=== PATIENT | female | born 1930 | race Caucasian/White ===

== ENCOUNTER 2018-01-27 12:43 | Inpatient (IN) | payer OTHER ==
[~2018-01-27] VITALS: Ht 162.6 cm; Wt 56.2 kg
[2018-01-27 12:43] VITALS: BP_SYST 144
--- NOTE | 2018-01-27 12:43 | NUR ---
[facility] from [facility]. Patient to ER bed 06 to gown for evaluation. Side rails up.
--- NOTE | 2018-01-27 12:57 | NUR ---
ER Dr. Jeronimo at bedside examining patient.
[2018-01-27] MEDS ORDERED: ONDANSETRON 4 MG ODT TAB PO ONE (13:15)
[2018-01-27] MEDS ORDERED: MORPHINE 2 MG/ML INJ. SYRINGE IM ONE (13:15)
--- NOTE | 2018-01-27 13:49 | NUR ---
medications were given, pt tolerated well. No adverse reaction, will continue to monitor.
--- NOTE | 2018-01-27 14:30 | NUR ---
Patient resting quietly. No acute distress noted. Vital signs within normal range.
[2018-01-27] MEDS ORDERED: MORPHINE 2 MG/ML INJ. SYRINGE IVP PRN (14:45)
[2018-01-27] MEDS ORDERED: POTASSIUM CHLORIDE 20 MEQ TAB.PRT.SR PO PRN (14:45)
[2018-01-27] MEDS ORDERED: ONDANSETRON HCL 4 MG/2 ML VIAL IVP PRN (14:45)
[2018-01-27] MEDS ORDERED: DOCUSATE SODIUM 100 MG CAPSULE PO PRN (14:45)
[2018-01-27] MEDS ORDERED: ACETAMINOPHEN 325 MG TABLET PO PRN ×2 (14:45)
[2018-01-27] MEDS ORDERED: MAGNESIUM SULFATE 50 ML IV PRN (14:45)
--- NOTE | 2018-01-27 14:50 | NUR ---
Pt off unit for CT via [facility]
[2018-01-27 15:12] LABS: BASOPHILS % (AUTO) 0.5 % (0.0-2.0); EOSINOPHILS # (AUTO) 0.1 K/uL (0.0-0.4); EOSINOPHILS % (AUTO) 1.8 % (0.0-4.0); HEMATOCRIT 33.3 % (36-48); HEMOGLOBIN 11.1 g/dL (12.0-16.0); LYMPHOCYTES % (AUTO) 19.7 % (20.5-51.5); MEAN CORPUSCULAR HEMOGLOBIN 32 pg (27-31); MEAN CORPUSCULAR HGB CONC 33 % (32-36); MEAN CORPUSCULAR VOLUME 96 fL (79.0-98.0); MONOCYTES # (AUTO) 0.3 K/uL (0.0-1.0); MONOCYTES % (AUTO) 5.3 % (1.7-9.3); NEUTROPHILS # (AUTO) 3.5 K/uL (1.8-7.7); NEUTROPHILS % (AUTO) 72.7 % (40.0-70.0); PLATELET COUNT (AUTO) 278 K/uL (130-430); RED BLOOD CELL COUNT(AUTO) 3.48 MIL/uL (4.2-6.2); RED CELL DISTRIBUTION WIDTH 12.9 % (9.0-15.0); WHITE BLOOD COUNT (AUTO) 4.9 K/uL (4.8-10.8)
[2018-01-27 15:14] LABS: ANION GAP 6 (5-15); CALCIUM 8.7 mg/dL (8.4-11.0); CHLORIDE 104 mmol/L (98-107); CREATININE 0.92 mg/dL (0.55-1.30); GLUCOSE 106 mg/dL (70-99); POTASSIUM 3.7 mmol/L (3.5-5.1); SODIUM SERUM 137 mmol/L (136-145); UREA NITROGEN, BLOOD 7 mg/dL (8-21)
[2018-01-27 15:30] LABS: ALANINE AMINOTRANSFERASE 8 U/L (12-78); ALBUMIN 3.5 g/dL (3.4-4.8); AMYLASE 48 U/L (0-100); ASPARTATE AMINOTRANSFERASE 13 U/L (10-37); FREE T4 (FREE THYROXINE) 1.3 ng/dl (0.8-1.5); LIPASE 169 U/L (73-393); THYROID STIMULATING HORMONE 1.16 uIu/mL (0.36-3.74); TOTAL BILIRUBIN 0.3 mg/dL (0.0-1.0)
[2018-01-27 16:00] VITALS: BP_SYST 149
--- NOTE | 2018-01-27 16:22 | NUR ---
Patient will be admitted to care of Dr. Garcia. Admitted to med surg unit. Will go to room 120b. Belongings list completed. Summary report printed. Report will be given at bedside.
--- NOTE | 2018-01-27 16:23 | NUR ---
Transfer to same day surgery center. IV present no sign or symptom of infiltration.
--- NOTE | 2018-01-27 16:28 | NUR ---
ADMISSION NOTE Received patient from ER via [facility]an, received report from Luis Alberto LORENZO. Patient admitted with diagnosis of Lumbago. Patient oriented to hospital routine, call light, toileting and safety-patient verbalized understanding.
[2018-01-27 16:34] VITALS: BP_SYST 149
[2018-01-27 17:50] VITALS: BP_SYST 149
[2018-01-27] MEDS: HYDROcodone/ACETAMIN 10-325 MG TAB PO PRN ×2 (17:55→17:56)
--- NOTE | 2018-01-27 18:50 | NUR ---
Rounds Patient is currently resting comfortably in bed.IV is on the lac 26 running NS@60. Call light is within reach and bed is in low position. Will endorse care to the oncoming nurse.
[2018-01-27] MEDS: NACL 0.9% 1,000 ML IV SCH (18:57)
[2018-01-27 19:30] VITALS: BP_SYST 128
--- NOTE | 2018-01-27 19:30 | NUR ---
Initial PM Note Pt was received lying in bed fully awake, alert and oriented x4. Pt is [place] Speaking and able to make her needs known. No c/o pain or discomfort. IVF of NS is infusing well in LAC at 60ml/hr without any signs of infiltration. Fall and safety precautions are in place. Pt was instructed to call for assistance as needed and pt verbalized understanding. Call light is with pt and bed alarm is on. Will continue to monitor pt.
[2018-01-27] MEDS ORDERED: ZOLPIDEM TARTRATE 5 MG TABLET PO PRN (21:00)
--- NOTE | 2018-01-27 22:00 | NUR ---
Rounds Pt is sleeping without any distress noted. Call light is with pt and bed alarm is on. IVF is infusing well in [facility].
[2018-01-27] MEDS: DOCUSATE SODIUM 100 MG CAPSULE PO SCH (22:13)
[2018-01-27] MEDS: CALCIUM CARBONATE/VITAMIN D3 1 TAB TABLET PO SCH (22:13)
--- NOTE | 2018-01-28 | NUR ---
Rounds Pt is sleeping comfortably in bed. Fall and safety precautions are in place. Call light is with pt and bed a;arm is on.
[2018-01-28 00:20] VITALS: BP_SYST 132
--- NOTE | 2018-01-28 02:00 | NUR ---
Rounds Pt continues to sleep comfortably in bed. IVF is infusing well in [facility]. Fall and safety precautions are in place. Call light is with pt and bed alarm is on.
--- NOTE | 2018-01-28 04:00 | NUR ---
Rounds Pt is sleeping without any respiratory distress noted. Call light is with pt and bed alarm is on. IVF is infusing well in [facility]. Will continue to monitor pt.
[2018-01-28] MEDS: HYDROcodone/ACETAMIN 10-325 MG TAB PO PRN ×3 (06:19→18:42)
--- NOTE | 2018-01-28 06:19 | NUR ---
Pain Medication [place] 10/325mg 1 tablet was given po for c/o low back pain with relief.
[2018-01-28 06:36] LABS: BASOPHILS % (AUTO) 0.5 % (0.0-2.0); EOSINOPHILS # (AUTO) 0.1 K/uL (0.0-0.4); EOSINOPHILS % (AUTO) 2.9 % (0.0-4.0); HEMATOCRIT 32.8 % (36-48); HEMOGLOBIN 11.2 g/dL (12.0-16.0); LYMPHOCYTES # (AUTO) 1.2 K/uL (1.0-5.5); LYMPHOCYTES % (AUTO) 25.7 % (20.5-51.5); MEAN CORPUSCULAR HEMOGLOBIN 33 pg (27-31); MEAN CORPUSCULAR HGB CONC 34 % (32-36); MEAN CORPUSCULAR VOLUME 96 fL (79.0-98.0); MONOCYTES # (AUTO) 0.2 K/uL (0.0-1.0); MONOCYTES % (AUTO) 5.1 % (1.7-9.3); NEUTROPHILS # (AUTO) 3.3 K/uL (1.8-7.7); NEUTROPHILS % (AUTO) 65.8 % (40.0-70.0); PLATELET COUNT (AUTO) 271 K/uL (130-430); RED BLOOD CELL COUNT(AUTO) 3.42 MIL/uL (4.2-6.2); RED CELL DISTRIBUTION WIDTH 12.8 % (9.0-15.0); WHITE BLOOD COUNT (AUTO) 4.9 K/uL (4.8-10.8)
[2018-01-28 06:45] LABS: ANION GAP 6 (5-15); CALCIUM 9.6 mg/dL (8.4-11.0); CHLORIDE 104 mmol/L (98-107); CHOLESTEROL 166 mg/dL (<200); CREATININE 0.83 mg/dL (0.55-1.30); GLUCOSE 93 mg/dL (70-99); HDL CHOLESTEROL 49 mg/dL (>55); LDL CHOLESTEROL 94 mg/dL (<100); PHOSPHORUS 3.5 mg/dL (2.7-4.5); POTASSIUM 3.6 mmol/L (3.5-5.1); SODIUM SERUM 139 mmol/L (136-145); TRIGLYCERIDES 107 mg/dL (30-150); UREA NITROGEN, BLOOD 9 mg/dL (8-21)
--- NOTE | 2018-01-28 06:50 | NUR ---
Closing Note Pt is resting comfortably in bed. IVF is infusing well in [facility]. Call light is with pt and bed alarm is on. Will endorse to day shift nurse.
[2018-01-28 07:08] LABS: HEMOGLOBIN A1C 4.9 % (4.8-5.6)
[2018-01-28 08:00] VITALS: BP_SYST 146
--- NOTE | 2018-01-28 08:00 | NUR ---
Opening Note received report from caustic cresylate shift superintendent RN, pt resting in bed, A&Ox4, respirations even and unlabored on room air, pt denies any pain at this time, IV site clean, dry, intact, and infusing well, pt educated on use of call light and asked to call for assistance, pt verbalized understanding, call light in reach, bed in low position, bed alarm on, fall and aspiration precautions in place.
[2018-01-28 08:11] LABS: T4 (THYROXINE) 8.6 ug/dL (4.5-12.0)
[2018-01-28] MEDS: NACL 0.9% 1,000 ML IV SCH (08:46)
[2018-01-28] MEDS: CALCIUM CARBONATE/VITAMIN D3 1 TAB TABLET PO SCH ×2 (08:46→20:52)
[2018-01-28] MEDS: DOCUSATE SODIUM 100 MG CAPSULE PO SCH ×2 (08:46→20:52)
--- NOTE | 2018-01-28 08:50 | NUR ---
Medication pt edcuated on medication use and side effects, pt verbalized understanding, tolerated medication administration well, fall and aspiration precautions in place.
--- NOTE | 2018-01-28 09:16 | NUR ---
Nutrition Update Nestor Scale 15 noted. Pt admitted for lumbago. Diet: regular BMI: 21.3 kg/m2 RD to follow per nutrition care standards.
--- NOTE | 2018-01-28 10:40 | NUR ---
RN Rounds pt resting in bed, denies any pain at this time, IV infusing well, no additional needs at this time, fall and aspiration precautions in place.
[2018-01-28 11:09] VITALS: BP_SYST 134
--- NOTE | 2018-01-28 12:39 | NUR ---
Pain Management/Medication pt complaint of pain /10 to abdomen and lower back, pt educated on use of PRN pain medication, pt verbalized understanding, pt tolerated medication administration well, no additional needs at this time, fall and aspiration precautions in place.
--- NOTE | 2018-01-28 14:07 | NUR ---
RN Rounds pt sleeping in bed, easily arousable to name, respirations even and unlabored, pain controlled at this time, fall and aspiration precautions in place.
--- NOTE | 2018-01-28 15:10 | NUR ---
RN Rounds pt crying, states that her blanket is wet, pt brought new linens, pt offered toileting, pt states that she does not need toileting at this time, pt states that pain is controlled, all needs met, pt resting in bed, call light in reach, fall and aspiration precautions in place.
[2018-01-28 15:14] VITALS: BP_SYST 125
--- NOTE | 2018-01-28 15:51 | NUR ---
IV RE-INSERTION: Complaining of leaking to IV site. Restarted on right wrist g22. Successful after 1 attempts. Resumed current IVF and regulated @ 69 ml per hour. Will observe for any signs of infiltration.
--- NOTE | 2018-01-28 16:50 | NUR ---
RN Rounds pt resting in bed, caregiver from [place] at bedside, pt reports that pain is controlled at this time, respirations even and unlabored on room air, no acute distress noted, no additional needs at this time, fall and aspiration precautions in place.
--- NOTE | 2018-01-28 18:01 | NUR ---
Pain Management pt complaint of pain 5/10, pt requesting PRN norco, pt informed that PRN norco is not due at this time, pt offered PRN morphine for pain scale 5/10, pt refusing PRN morphine, pt states that she will wait until PRN norco is due, pt assisted to reposition to position of comfort, pt states that she is comfortable at this time, fall and aspiration precautions in place.
--- NOTE | 2018-01-28 18:44 | NUR ---
Pain Management/Medication pt complaint of pain 11/27 to middle back, pt educated on use and side effects of PRN pain medication, pt verbalized understanding, pt tolerated medication administration well, no additional needs at this time, fall and aspiration precautions in place.
--- NOTE | 2018-01-28 18:58 | NUR ---
Closing Note pt resting in bed, A&Ox4, respirations even and unlabored on room air, pain reassessment at 1942 endorsed to overnight stocker RN, no acute distress noted, IV site clean, dry, intact, and infusing well, no redness or swelling noted at IV site, pt educated on use of call light and asked to call for assistance, pt verbalized understanding, call light in reach, bed in low position, bed alarm on, fall and aspiration precautions in place, will endorse care to overnight stocker RN.
--- NOTE | 2018-01-28 19:15 | NUR ---
OPENING NOTE Patient and bedside received from day shift nurse. Pt. AAO x 4 and resting in bed. IVF infusing to right wrist 22g as ordered. Bilateral SCDS on. Safety and fall precautions in place. Bed alarm on. Encouraged patient to use call light for any needs. Will continue to monitor.
[2018-01-28 19:40] VITALS: BP_SYST 127
--- NOTE | 2018-01-28 20:00 | NUR ---
WARM BLANKET Warm blanket applied to patient as requested.
--- NOTE | 2018-01-28 21:00 | NUR ---
DUE MEDS Due meds administered as ordered. Tolerated well. Educated patient regarding medications and potential side effects. Encouraged pt. to continue using call light for needs. Bed alarm on. Will continue to monitor.
--- NOTE | 2018-01-29 | NUR ---
BRP TO VOID Patient was assisted by Scott Arzate RN to bathroom to void; tolerated well with no SOB.
[2018-01-29 00:20] VITALS: BP_SYST 138
--- NOTE | 2018-01-29 02:30 | NUR ---
IVF IVF bag was changed and replaced. Infusing at ordered rate. Will monitor.
[2018-01-29] MEDS: NACL 0.9% 1,000 ML IV SCH (02:44)
--- NOTE | 2018-01-29 04:00 | NUR ---
RESTING Patient is resting at this time. No s/s of acute distress. Safety and fall precautions in place. Bed alarm on. Will continue to monitor.
[2018-01-29 05:46] LABS: BASOPHILS % (AUTO) 0.4 % (0.0-2.0); EOSINOPHILS # (AUTO) 0.2 K/uL (0.0-0.4); EOSINOPHILS % (AUTO) 3.8 % (0.0-4.0); HEMATOCRIT 32.6 % (36-48); HEMOGLOBIN 10.6 g/dL (12.0-16.0); MEAN CORPUSCULAR HEMOGLOBIN 31 pg (27-31); MEAN CORPUSCULAR HGB CONC 33 % (32-36); MEAN CORPUSCULAR VOLUME 96 fL (79.0-98.0); MONOCYTES # (AUTO) 0.3 K/uL (0.0-1.0); MONOCYTES % (AUTO) 7.5 % (1.7-9.3); NEUTROPHILS # (AUTO) 2.5 K/uL (1.8-7.7); NEUTROPHILS % (AUTO) 63.3 % (40.0-70.0); PLATELET COUNT (AUTO) 265 K/uL (130-430); RED BLOOD CELL COUNT(AUTO) 3.39 MIL/uL (4.2-6.2); RED CELL DISTRIBUTION WIDTH 12.6 % (9.0-15.0)
--- NOTE | 2018-01-29 06:03 | NUR ---
RESTING Patient is resting; no s/s of acute distress. Visible chest rise and fall. Safety and fall precautions in place. Bed alarm on. Call light to left hand. Will continue to monitor.
[2018-01-29 06:04] LABS: ANION GAP 7 (5-15); CALCIUM 9.5 mg/dL (8.4-11.0); CHLORIDE 106 mmol/L (98-107); CREATININE 0.84 mg/dL (0.55-1.30); GLUCOSE 94 mg/dL (70-99); POTASSIUM 3.7 mmol/L (3.5-5.1); SODIUM SERUM 142 mmol/L (136-145); UREA NITROGEN, BLOOD 8 mg/dL (8-21)
[2018-01-29 06:10] LABS: PHOSPHORUS 3.3 mg/dL (2.7-4.5)
--- NOTE | 2018-01-29 06:34 | NUR ---
CLOSING NOTES All needs met throughout shift. No significant changes from initial assessment. Patient is resting in bed with unlabored breathing and visible chest rise and fall. Safety and fall precautions maintained. Bed alarm on. Room near nurses station. Call light to left hand in plastic dill on side rail. Will endorse care to oncoming day shift nurse.
--- NOTE | 2018-01-29 07:40 | NUR ---
OPENING NOTE PT LAYING IN BED, REORIENTED TO CALL LIGHT USE, CALL LIGHT WITHIN REACH, BED ALARM IN PLACE WITH BED IN LOWEST POSITION. SAFETY MAINTAINED. DENIES ANY CHEST PAIN/SOB
[2018-01-29 08:00] VITALS: BP_SYST 134
[2018-01-29] MEDS: CALCIUM CARBONATE/VITAMIN D3 1 TAB TABLET PO SCH ×2 (09:24→20:23)
[2018-01-29] MEDS: DOCUSATE SODIUM 100 MG CAPSULE PO SCH ×2 (09:24→20:23)
--- NOTE | 2018-01-29 09:25 | NUR ---
am meds morning meds given. pt tolerated well marketing liaison at bedside changing patient a this time.
[2018-01-29] MEDS: HYDROcodone/ACETAMIN 10-325 MG TAB PO PRN ×2 (10:01→20:56)
--- NOTE | 2018-01-29 10:10 | NUR ---
MED PASS PT COMPLAINED OF PAIN GIVEN NORCO ORDERED. NO DISTRESS NOTED.
[2018-01-29 12:00] VITALS: BP_SYST 134
--- NOTE | 2018-01-29 12:00 | NUR ---
PATIENT RESTING: Patient resting quietly. No acute distress noted. Vital signs within normal range.
--- NOTE | 2018-01-29 14:00 | NUR ---
ROUNDS PT LAYING IN BED AWAKE ALERT. DENIES ANY CHEST PAIN/SOB. SAFETY MAINTAINED
[2018-01-29 16:00] VITALS: BP_SYST 139
--- NOTE | 2018-01-29 16:00 | NUR ---
PATIENT RESTING: Patient resting quietly. No acute distress noted. Vital signs within normal range.
--- NOTE | 2018-01-29 19:21 | NUR ---
CLOSING NOTE ALL NEEDS MET THROUGH SHIFT, SAFETY MAINTAINED. CARE ENDORSED TO DRIVEMATIC MACHINE OPERATOR.
--- NOTE | 2018-01-29 19:33 | NUR ---
OPENING NOTE Patient and report was received from day shift nurse. Patient is AAO x 4 and resting in bed. Denies any pain or discomfort at this time. IV to right wrist 22g is intact and saline locked. Cell phone was connected to portable primer charger as requested. Aware of plan of care. Safety and fall precautions were discussed; verbalized understanding. Bed alarm on. Room near nurses station. Call light to right hand. Will continue to monitor.
[2018-01-29 19:34] VITALS: BP_SYST 135
--- NOTE | 2018-01-29 20:58 | NUR ---
PAIN Patient is c/o "6" back pain. Greer was given as ordered PRN for moderate pain. See EMAR. Educated pt. regarding medication and potential side effects. Safety and fall precautions in place. Encouraged to use call light for needs. Will continue to monitor.
--- NOTE | 2018-01-29 22:15 | NUR ---
BEDPAN Pt. requested bedpan to void; tolerated well. Denies any pain or discomfort. Requested extra blanket. Encouraged to use call light for any needs. Will continue to monitor.
--- NOTE | 2018-01-30 01:48 | NUR ---
RESTING Pt. is resting with no s/s of acute distress. Breathing even and unlabored. Visible chest rise and fall. Safety and fall precautions in place. Bed alarm on. Call light to left hand side in plastic dill on side rail. Room near nurses station. Will continue with plan of care.
[2018-01-30 02:00] VITALS: BP_SYST 146
--- NOTE | 2018-01-30 03:41 | NUR ---
SLEEPING Pt. is sleeping. Breathing is even and unlabored with chest rise and fall. No acute distress. Call light to left hand. Safety precautions in place. Bed alarm on. Will monitor.
[2018-01-30 06:53] LABS: BASOPHILS % (AUTO) 0.2 % (0.0-2.0); EOSINOPHILS # (AUTO) 0.2 K/uL (0.0-0.4); EOSINOPHILS % (AUTO) 3.7 % (0.0-4.0); HEMATOCRIT 32.7 % (36-48); HEMOGLOBIN 11.3 g/dL (12.0-16.0); LYMPHOCYTES # (AUTO) 1.1 K/uL (1.0-5.5); LYMPHOCYTES % (AUTO) 27.9 % (20.5-51.5); MEAN CORPUSCULAR HEMOGLOBIN 33 pg (27-31); MEAN CORPUSCULAR HGB CONC 35 % (32-36); MEAN CORPUSCULAR VOLUME 95 fL (79.0-98.0); MONOCYTES # (AUTO) 0.3 K/uL (0.0-1.0); MONOCYTES % (AUTO) 7.7 % (1.7-9.3); NEUTROPHILS # (AUTO) 2.5 K/uL (1.8-7.7); NEUTROPHILS % (AUTO) 60.5 % (40.0-70.0); PLATELET COUNT (AUTO) 260 K/uL (130-430); RED BLOOD CELL COUNT(AUTO) 3.44 MIL/uL (4.2-6.2); RED CELL DISTRIBUTION WIDTH 12.6 % (9.0-15.0); WHITE BLOOD COUNT (AUTO) 4.1 K/uL (4.8-10.8)
[2018-01-30 07:03] LABS: ANION GAP 4 (5-15); CALCIUM 10.2 mg/dL (8.4-11.0); CHLORIDE 105 mmol/L (98-107); CREATININE 0.86 mg/dL (0.55-1.30); GLUCOSE 98 mg/dL (70-99); PHOSPHORUS 3.7 mg/dL (2.7-4.5); POTASSIUM 3.4 mmol/L (3.5-5.1); SODIUM SERUM 138 mmol/L (136-145); UREA NITROGEN, BLOOD 7 mg/dL (8-21)
[2018-01-30 07:35] VITALS: BP_SYST 141
--- NOTE | 2018-01-30 07:38 | NUR ---
CLOSING NOTES All needs met throughout shift. No significant changes from initial assessment. Patient is resting in bed with unlabored breathing and visible chest rise and fall. Safety and fall precautions maintained. Bed alarm on. Room near nurses station. Call light to left hand in plastic dill on side rail. Care was endorsed to day shift nurse.
--- NOTE | 2018-01-30 07:45 | NUR ---
INITIAL NOTE RECEIVED PT IN BED, NO S/S OF DISTRESS OR SOB NOTED, PT HAS NO C/O PAIN AT THIS TIME, PT IN STABLE CONDITION, PT AAOX4, VERBAL. PT HAS IV CATHETER, PATENT AND FLUSHED, NO SIGNS OF INFECTION OR INFILTRATION NOTED, SALINE LOCK. BED AT LOWEST POSITION, CALL LIGHT WITHIN REACH, WILL CONTINUE TO MONITOR PT FOR ANY CHANGES, FALL PRECAUTIONS IN PLACE. SAFETY PRECAUTIONS IN PLACE. PT HAS BED ALARM ON.
[2018-01-30] MEDS: CALCIUM CARBONATE/VITAMIN D3 1 TAB TABLET PO SCH (08:53)
[2018-01-30] MEDS: DOCUSATE SODIUM 100 MG CAPSULE PO SCH (08:53)
[2018-01-30] MEDS: HYDROcodone/ACETAMIN 10-325 MG TAB PO PRN (08:59)
[2018-01-30] MEDS ORDERED: DOCU-144 PO (10:18)
[2018-01-30] MEDS ORDERED: HYDR-3925 PO (10:18)
--- NOTE | 2018-01-30 10:20 | NUR ---
ROUNDS PT IN BED, NO S/S OF DISTRESS OR SOB NOTED, PT HAS NO C/O PAIN AT THIS TIME, PT IN STABLE CONDITION, PT WATCHING TV, WILL CONTINUE TO MONITOR PT FOR ANY CHANGES.
--- NOTE | 2018-01-30 10:37 | NUR ---
DC PLANNING Order to dc home w home health for PT. Spoke w pt @ bedside agreeable w dc back to [facility] w Home Health. States does not want to go to [facility], wants back home & states caregivers @ [facility] will assist her. Called & spoke w Princess @ [facility], ph [phone], states someone will be able to assist pt & can go back w HH. Called & spoke w Katy @ [facility], ph [phone] fax [phone], & informed of order, [facility] to fax order & pt info & they will set up HH. Will call back once set up. Addendum: 01/30/18 at 1336 by Katy Bautista RN Received call back from Katy @ [place], [facility], ph [phone], will follow pt. [facility] will see pt tomorrow. Updated pt's nurse [place]ano. Addendum: 01/30/18 at 1336 by Katy Bautista RN add to note above: per Katy SOLO auth #[id number]
--- NOTE | 2018-01-30 11:09 | NUR ---
PHYSICAL THERAPY CO-SIGN The Physical Therapy Progress Notes documented by Smoke Chaser have been reviewed. I CONCUR W/TURF KEEPER NOTE; CONT PER TX PLAN Reviewed/Co-Signed by: Digna Bui PT Documentation Done by: WAAQS PINA PTA Addendum: 01/30/18 at 1110 by Digna Bui PT Amended: Links added.
--- NOTE | 2018-01-30 11:30 | NUR ---
BATHROOM PT WALKED TO THE RESTROOM WITH ASSISTANCE AND WITH THE USE OF A WALKER, PT TOLERATED. PT VOIDED X1, PERINEAL CARE PROVIDED. NO S/S OF DISTRESS OR SOB NOTED, PT HAS NO C/O PAIN AT THIS TIME.
--- NOTE | 2018-01-30 12:09 | NUR ---
BLOOD PRESSURE PATIENT'S BLOOD PRESSURE WAS 162/62, PULSE 72. PT ASYMPTOMATIC, NO C/O HEADACHE OR DIZZINESS, DR AMES PAGED TO NOTIFY HIM DUE TO PT NOT HAVING BLOOD PRESSURE MEDICATIONS ORDERED. AWAITING CALL BACK. Addendum: 01/30/18 at 1337 by Xiomara Hoff RN PATIENT'S BLOOD PRESSURE IS 117/71, PULSE 80. PT IN STABLE CONDITION, NO S/S OF DISTRESS OR SOB NOTED. PT HAS NO C/O PAIN AT THIS TIME.
[2018-01-30] MEDS ORDERED: ENALAPRILAT DIHYDRATE 1.25 MG/ML VIAL IVP ONE (12:30)
[2018-01-30 12:33] VITALS: BP_SYST 159
--- NOTE | 2018-01-30 13:42 | NUR ---
[facility] SPOKE WITH NURSE FOR [facility] GROWER FOR D/C PT BACK TO [place], THERE IS NO SCRAP DROP ENGINEER AT THIS TIME BUT NURSE WILL CALL ME BACK.
[2018-01-30 13:55] VITALS: BP_SYST 116
--- NOTE | 2018-01-30 14:41 | NUR ---
D/C Patient Patient given medication reconciliation form and D/C instructions. Exit Care provided. Patient verbalized understanding. MD discussed with patient the results and treatment provided. Ambulatory with assit to get out of bed for discharge to home, pt able to walk with walker. Patient in stable condition, ID band removed. IV catheter removed, intact and dressing applied, no active bleeding. Rx of norco and colace given. Patient educated on pain management. All belongings sent with patient.
--- NOTE | 2018-01-31 14:32 | NUR ---
Discharge Follow Up Phone Call SPRAGGER phoned [place] where patient resides, , and spoke with one of patient's caregivers. Patient is doing well. They filled her prescriptions and have most of her follow up appointments made. [facility] began services today and PT will begin this pm. They have no questions or concerns.
== END 2018-01-30 15:30 | disposition home health service (06) | DRG 552 ==
LOC: SED 12:43 → SMU 14:35
PROVIDERS: ADMIT Family Medicine; ATTEND Family Medicine
DX: M51.16 Intervertebral disc disorders with radiculopathy, lumbar region (principal); M48.54XA Collapsed vertebra, not elsewhere classified, thoracic region, initial encounter for fracture; M48.56XA Collapsed vertebra, not elsewhere classified, lumbar region, initial encounter for fracture; D63.8 Anemia in other chronic diseases classified elsewhere; I10 Essential (primary) hypertension; K59.00 Constipation, unspecified; M17.0 Bilateral primary osteoarthritis of knee; M48.061 Spinal stenosis, lumbar region without neurogenic claudication; Z82.49 Family history of ischemic heart disease and other diseases of the circulatory system; Z86.79 Personal history of other diseases of the circulatory system; Z90.710 Acquired absence of both cervix and uterus; Z90.49 Acquired absence of other specified parts of digestive tract; Z86.718 Personal history of other venous thrombosis and embolism; E87.6 Hypokalemia
CPT/HCPCS: 36415; 72072-TC; 72100-TC; 72128; 72131; 80048; 80053; 80061; 82150-TC; 83036; 83690-TC; 83735-TC; 83880; 84100-TC; 84436; 84439; 84443-TC; 84479; 85025; 96372; 97110-GP; 97116-GP; 97530-GP; 99285; J2270; J7030; Q0162

== ENCOUNTER 2018-02-06 09:04 | Inpatient (IN) | payer OTHER ==
[~2018-02-06] VITALS: Ht 162.6 cm; Wt 60.8 kg
[~2018-02-06 09:04] MED LIST: DOCU-144 PO; HYDR-3925 PO
[2018-02-06 09:08] VITALS: BP_SYST 142
[2018-02-06] MEDS ORDERED: fentaNYL CITRATE/PF 100 MCG/2 ML AMP IVP ONE (09:30)
[2018-02-06] MEDS ORDERED: ONDANSETRON HCL 4 MG/2 ML VIAL IVP ONE ×2 (09:30→14:45)
[2018-02-06] MEDS ORDERED: BISA10SU61 RC (09:33)
[2018-02-06] MEDS ORDERED: LUTE1CAP5 PO (09:33)
[2018-02-06] MEDS ORDERED: SIMV20TA2 PO (09:33)
[2018-02-06] MEDS ORDERED: PRIM50TA27 PO (09:33)
[2018-02-06] MEDS ORDERED: HYDR-2489 PO (09:33)
[2018-02-06] MEDS ORDERED: ASPI-1153 PO (09:33)
[2018-02-06] MEDS ORDERED: GUAI600T86 PO (09:33)
[2018-02-06] MEDS ORDERED: DICL100G19 TP (09:33)
[2018-02-06] MEDS ORDERED: SENN8.6T19 PO (09:33)
[2018-02-06] MEDS ORDERED: CYAN100010 PO (09:33)
[2018-02-06] MEDS ORDERED: MELO15TA13 PO (09:33)
[2018-02-06] MEDS ORDERED: TIZA4TAB11 PO (09:33)
[2018-02-06] MEDS ORDERED: NAPR220C15 PO (09:33)
[2018-02-06] MEDS ORDERED: ERGO500020 PO (09:33)
[2018-02-06 09:40] LABS: BASOPHILS % (AUTO) 0.4 % (0.0-2.0); EOSINOPHILS # (AUTO) 0.1 K/uL (0.0-0.4); EOSINOPHILS % (AUTO) 3.1 % (0.0-4.0); HEMATOCRIT 34.1 % (36-48); HEMOGLOBIN 11.6 g/dL (12.0-16.0); LYMPHOCYTES # (AUTO) 0.9 K/uL (1.0-5.5); MEAN CORPUSCULAR HEMOGLOBIN 33 pg (27-31); MEAN CORPUSCULAR HGB CONC 34 % (32-36); MEAN CORPUSCULAR VOLUME 96 fL (79.0-98.0); MONOCYTES # (AUTO) 0.2 K/uL (0.0-1.0); MONOCYTES % (AUTO) 5.5 % (1.7-9.3); NEUTROPHILS # (AUTO) 3.3 K/uL (1.8-7.7); PLATELET COUNT (AUTO) 217 K/uL (130-430); RED BLOOD CELL COUNT(AUTO) 3.55 MIL/uL (4.2-6.2); RED CELL DISTRIBUTION WIDTH 12.5 % (9.0-15.0); WHITE BLOOD COUNT (AUTO) 4.5 K/uL (4.8-10.8)
[2018-02-06 10:00] LABS: ANION GAP 7 (5-15); CALCIUM 9.3 mg/dL (8.4-11.0); CHLORIDE 103 mmol/L (98-107); CREATININE 1.09 mg/dL (0.55-1.30); GLUCOSE 133 mg/dL (70-99); POTASSIUM 3.9 mmol/L (3.5-5.1); SODIUM SERUM 139 mmol/L (136-145); UREA NITROGEN, BLOOD 14 mg/dL (8-21)
[2018-02-06 10:11] LABS: ALANINE AMINOTRANSFERASE 11 U/L (12-78); ALBUMIN 3.5 g/dL (3.4-4.8); ASPARTATE AMINOTRANSFERASE 17 U/L (10-37); TOTAL BILIRUBIN 0.4 mg/dL (0.0-1.0)
[2018-02-06] MEDS ORDERED: IOHEXOL 100 ML IV ONE (10:18)
[2018-02-06 10:37] LABS: PROTHROMBIN TIME 9.8 SECS (9.5-12.5)
[2018-02-06 12:38] LABS: BILIRUBIN,URINE NEGATIVE (NEGATIVE); BLOOD, URINE NEGATIVE (NEGATIVE); CLARITY/URINE CLEAR (CLEAR); COLOR,URINE YELLOW (YELLOW); GLUCOSE,URINE NEGATIVE (NEGATIVE); KETONES,URINE NEGATIVE (NEGATIVE); LEUKOCYTE ESTERASE ,URINE NEGATIVE (NEGATIVE); NITRITE, URINE NEGATIVE (NEGATIVE); PROTEIN URINE NEGATIVE (NEGATIVE); UROBILINOGEN,URINE 0.2 (0.2-1.0)
[2018-02-06] MEDS ORDERED: MORPHINE 2 MG/ML INJ. SYRINGE IVP ONE (14:45)
[2018-02-06] MEDS ORDERED: ZOLPIDEM TARTRATE 5 MG TABLET PO PRN (17:15)
[2018-02-06] MEDS ORDERED: LORazepam 2 MG/ML VIAL IVP PRN (17:15)
[2018-02-06] MEDS ORDERED: MORPHINE 2 MG/ML INJ. SYRINGE IVP PRN (17:15)
[2018-02-06] MEDS ORDERED: DOCUSATE SODIUM 100 MG CAPSULE PO PRN (17:15)
[2018-02-06] MEDS ORDERED: ACETAMINOPHEN 325 MG TABLET PO PRN (17:15)
[2018-02-06] MEDS ORDERED: MUPIROCIN 2% TOPICAL OINTMENT 22 GM NS PRN (17:15)
[2018-02-06] MEDS ORDERED: POTASSIUM CHLORIDE 20 MEQ TAB.PRT.SR PO PRN (17:15)
[2018-02-06] MEDS ORDERED: ONDANSETRON HCL 4 MG/2 ML VIAL IVP PRN (17:15)
[2018-02-06] MEDS ORDERED: MAGNESIUM SULFATE 50 ML IV PRN (17:15)
[2018-02-06 18:01] VITALS: BP_SYST 140
[2018-02-06] MEDS: BISACODYL 10 MG/SUPPOSITORY RC SCH ×2 (19:00→23:00)
[2018-02-06 20:03] VITALS: BP_SYST 140
[2018-02-06] MEDS: HEPARIN SODIUM,PORCINE 5000 UNITS/ML VIAL SUBCUT SCH (20:20)
[2018-02-06] MEDS: MORPHINE 2 MG/ML INJ. SYRINGE IVP PRN (20:27)
[2018-02-07 00:20] VITALS: BP_SYST 140
[2018-02-07] MEDS: BISACODYL 10 MG/SUPPOSITORY RC SCH ×2 (03:00→06:52)
[2018-02-07] MEDS: MORPHINE 2 MG/ML INJ. SYRINGE IVP PRN (06:10)
[2018-02-07 06:43] LABS: BASOPHILS % (AUTO) 0.8 % (0.0-2.0); EOSINOPHILS # (AUTO) 0.2 K/uL (0.0-0.4); EOSINOPHILS % (AUTO) 4.7 % (0.0-4.0); HEMATOCRIT 32.9 % (36-48); HEMOGLOBIN 11.1 g/dL (12.0-16.0); LYMPHOCYTES # (AUTO) 1.1 K/uL (1.0-5.5); LYMPHOCYTES % (AUTO) 31.4 % (20.5-51.5); MEAN CORPUSCULAR HEMOGLOBIN 32 pg (27-31); MEAN CORPUSCULAR HGB CONC 34 % (32-36); MEAN CORPUSCULAR VOLUME 95 fL (79.0-98.0); MONOCYTES # (AUTO) 0.3 K/uL (0.0-1.0); MONOCYTES % (AUTO) 8.6 % (1.7-9.3); NEUTROPHILS # (AUTO) 1.9 K/uL (1.8-7.7); NEUTROPHILS % (AUTO) 54.5 % (40.0-70.0); PLATELET COUNT (AUTO) 208 K/uL (130-430); RED BLOOD CELL COUNT(AUTO) 3.46 MIL/uL (4.2-6.2); RED CELL DISTRIBUTION WIDTH 12.8 % (9.0-15.0)
[2018-02-07 07:01] LABS: ANION GAP 6 (5-15); CALCIUM 9.2 mg/dL (8.4-11.0); CHLORIDE 103 mmol/L (98-107); CREATININE 1.04 mg/dL (0.55-1.30); GLUCOSE 92 mg/dL (70-99); SODIUM SERUM 138 mmol/L (136-145); UREA NITROGEN, BLOOD 11 mg/dL (8-21)
[2018-02-07 07:53] LABS: WHITE BLOOD COUNT (AUTO) 3.6 K/uL (4.8-10.8)
[2018-02-07] MEDS: ASPIRIN 81 MG TABLET(ECOTRIN) PO SCH (08:20)
[2018-02-07] MEDS: HEPARIN SODIUM,PORCINE 5000 UNITS/ML VIAL SUBCUT SCH ×2 (08:22→22:03)
[2018-02-07 08:23] VITALS: BP_SYST 104
[2018-02-07] MEDS ORDERED: PRIMIDONE 50 MG TABLET PO SCH (09:00)
[2018-02-07] MEDS ORDERED: LUTEIN PO SCH (09:00)
[2018-02-07] MEDS ORDERED: ZEAXANTHIN PO SCH (09:00)
[2018-02-07 12:00] VITALS: BP_SYST 137
[2018-02-07] MEDS: HYDROcodone/ACETAMIN 10-325 MG TAB PO PRN ×2 (13:15→18:01)
[2018-02-07 16:22] VITALS: BP_SYST 130
[2018-02-07 20:00] VITALS: BP_SYST 156
[2018-02-07] MEDS: SIMVASTATIN 20 MG TABLET PO SCH (21:59)
[2018-02-08 00:16] VITALS: BP_SYST 133
[2018-02-08] MEDS: HYDROcodone/ACETAMIN 10-325 MG TAB PO PRN ×3 (04:33→21:19)
[2018-02-08 06:49] LABS: BASOPHILS % (AUTO) 1.1 % (0.0-2.0); EOSINOPHILS # (AUTO) 0.1 K/uL (0.0-0.4); EOSINOPHILS % (AUTO) 4.2 % (0.0-4.0); HEMATOCRIT 32.5 % (36-48); HEMOGLOBIN 10.7 g/dL (12.0-16.0); LYMPHOCYTES % (AUTO) 27.4 % (20.5-51.5); MEAN CORPUSCULAR HEMOGLOBIN 31 pg (27-31); MEAN CORPUSCULAR HGB CONC 33 % (32-36); MEAN CORPUSCULAR VOLUME 94 fL (79.0-98.0); MONOCYTES # (AUTO) 0.2 K/uL (0.0-1.0); NEUTROPHILS # (AUTO) 2.2 K/uL (1.8-7.7); NEUTROPHILS % (AUTO) 60.3 % (40.0-70.0); PLATELET COUNT (AUTO) 192 K/uL (130-430); RED BLOOD CELL COUNT(AUTO) 3.45 MIL/uL (4.2-6.2); RED CELL DISTRIBUTION WIDTH 12.6 % (9.0-15.0); WHITE BLOOD COUNT (AUTO) 3.5 K/uL (4.8-10.8)
[2018-02-08 06:50] LABS: ANION GAP 5 (5-15); CHLORIDE 103 mmol/L (98-107); CREATININE 0.81 mg/dL (0.55-1.30); GLUCOSE 96 mg/dL (70-99); POTASSIUM 3.7 mmol/L (3.5-5.1); SODIUM SERUM 136 mmol/L (136-145); UREA NITROGEN, BLOOD 10 mg/dL (8-21)
[2018-02-08 08:00] VITALS: BP_SYST 143
[2018-02-08] MEDS: PRIMIDONE 50 MG TABLET PO SCH ×3 (09:00→21:18)
[2018-02-08] MEDS: ASPIRIN 81 MG TABLET(ECOTRIN) PO SCH (09:00)
[2018-02-08] MEDS: HEPARIN SODIUM,PORCINE 5000 UNITS/ML VIAL SUBCUT SCH ×3 (09:03→21:22)
[2018-02-08] MEDS: MORPHINE 2 MG/ML INJ. SYRINGE IVP PRN (11:53)
[2018-02-08 12:56] VITALS: BP_SYST 148
[2018-02-08 16:19] VITALS: BP_SYST 150
[2018-02-08] MEDS: SIMVASTATIN 20 MG TABLET PO SCH (21:18)
[2018-02-08 22:59] VITALS: BP_SYST 139
[2018-02-09 00:33] VITALS: BP_SYST 155
[2018-02-09] MEDS: HEPARIN SODIUM,PORCINE 5000 UNITS/ML VIAL SUBCUT SCH ×3 (06:33→21:33)
[2018-02-09 07:43] LABS: BASOPHILS % (AUTO) 0.4 % (0.0-2.0); EOSINOPHILS # (AUTO) 0.2 K/uL (0.0-0.4); EOSINOPHILS % (AUTO) 4.3 % (0.0-4.0); HEMATOCRIT 33.5 % (36-48); HEMOGLOBIN 11.6 g/dL (12.0-16.0); LYMPHOCYTES % (AUTO) 27.2 % (20.5-51.5); MEAN CORPUSCULAR HEMOGLOBIN 33 pg (27-31); MEAN CORPUSCULAR HGB CONC 35 % (32-36); MEAN CORPUSCULAR VOLUME 95 fL (79.0-98.0); MONOCYTES # (AUTO) 0.3 K/uL (0.0-1.0); MONOCYTES % (AUTO) 7.2 % (1.7-9.3); NEUTROPHILS # (AUTO) 2.1 K/uL (1.8-7.7); NEUTROPHILS % (AUTO) 60.9 % (40.0-70.0); PLATELET COUNT (AUTO) 216 K/uL (130-430); RED BLOOD CELL COUNT(AUTO) 3.51 MIL/uL (4.2-6.2); RED CELL DISTRIBUTION WIDTH 12.5 % (9.0-15.0); WHITE BLOOD COUNT (AUTO) 3.6 K/uL (4.8-10.8)
[2018-02-09 08:11] LABS: ANION GAP 7 (5-15); CALCIUM 9.1 mg/dL (8.4-11.0); CHLORIDE 103 mmol/L (98-107); CREATININE 0.84 mg/dL (0.55-1.30); GLUCOSE 94 mg/dL (70-99); POTASSIUM 3.8 mmol/L (3.5-5.1); SODIUM SERUM 137 mmol/L (136-145); UREA NITROGEN, BLOOD 9 mg/dL (8-21)
[2018-02-09] MEDS: HYDROcodone/ACETAMIN 10-325 MG TAB PO PRN ×3 (08:30→18:36)
[2018-02-09] MEDS: PRIMIDONE 50 MG TABLET PO SCH ×3 (08:30→21:29)
[2018-02-09] MEDS: ASPIRIN 81 MG TABLET(ECOTRIN) PO SCH (08:30)
[2018-02-09 09:19] VITALS: BP_SYST 127
[2018-02-09 12:05] VITALS: BP_SYST 125
[2018-02-09 16:30] VITALS: BP_SYST 134
[2018-02-09 20:00] VITALS: BP_SYST 119
[2018-02-09] MEDS: SIMVASTATIN 20 MG TABLET PO SCH (21:30)
[2018-02-10 00:10] VITALS: BP_SYST 116
[2018-02-10] MEDS: HEPARIN SODIUM,PORCINE 5000 UNITS/ML VIAL SUBCUT SCH ×2 (06:24→15:10)
[2018-02-10 06:53] LABS: ANION GAP 4 (5-15); CALCIUM 9.2 mg/dL (8.4-11.0); CHLORIDE 103 mmol/L (98-107); GLUCOSE 95 mg/dL (70-99); POTASSIUM 3.9 mmol/L (3.5-5.1); SODIUM SERUM 136 mmol/L (136-145); UREA NITROGEN, BLOOD 11 mg/dL (8-21)
[2018-02-10 07:32] LABS: BASOPHILS % (AUTO) 0.7 % (0.0-2.0); EOSINOPHILS # (AUTO) 0.2 K/uL (0.0-0.4); EOSINOPHILS % (AUTO) 4.1 % (0.0-4.0); HEMATOCRIT 33.1 % (36-48); HEMOGLOBIN 11.3 g/dL (12.0-16.0); LYMPHOCYTES # (AUTO) 1.4 K/uL (1.0-5.5); LYMPHOCYTES % (AUTO) 31.2 % (20.5-51.5); MEAN CORPUSCULAR HEMOGLOBIN 32 pg (27-31); MEAN CORPUSCULAR HGB CONC 34 % (32-36); MEAN CORPUSCULAR VOLUME 94 fL (79.0-98.0); MONOCYTES # (AUTO) 0.3 K/uL (0.0-1.0); MONOCYTES % (AUTO) 7.4 % (1.7-9.3); NEUTROPHILS # (AUTO) 2.4 K/uL (1.8-7.7); NEUTROPHILS % (AUTO) 56.6 % (40.0-70.0); PLATELET COUNT (AUTO) 233 K/uL (130-430); RED BLOOD CELL COUNT(AUTO) 3.51 MIL/uL (4.2-6.2); RED CELL DISTRIBUTION WIDTH 12.6 % (9.0-15.0); WHITE BLOOD COUNT (AUTO) 4.3 K/uL (4.8-10.8)
[2018-02-10 08:00] VITALS: BP_SYST 118
[2018-02-10] MEDS: PRIMIDONE 50 MG TABLET PO SCH ×2 (09:42→15:08)
[2018-02-10] MEDS: ASPIRIN 81 MG TABLET(ECOTRIN) PO SCH (09:42)
[2018-02-10] MEDS: HYDROcodone/ACETAMIN 10-325 MG TAB PO PRN ×2 (09:44→15:08)
[2018-02-10 11:45] VITALS: BP_SYST 134
[2018-02-10 16:11] VITALS: BP_SYST 133
== END 2018-02-10 16:28 | DRG 552 ==
LOC: SED 09:04 → SMU 16:04
PROVIDERS: ADMIT General Practice; ATTEND General Practice
DX: M51.16 Intervertebral disc disorders with radiculopathy, lumbar region (principal); M48.56XA Collapsed vertebra, not elsewhere classified, lumbar region, initial encounter for fracture; D64.9 Anemia, unspecified; E78.00 Pure hypercholesterolemia, unspecified; G25.0 Essential tremor; K44.9 Diaphragmatic hernia without obstruction or gangrene; I51.7 Cardiomegaly; N26.1 Atrophy of kidney (terminal); I25.10 Atherosclerotic heart disease of native coronary artery without angina pectoris; M47.26 Other spondylosis with radiculopathy, lumbar region; Z96.659 Presence of unspecified artificial knee joint; N28.1 Cyst of kidney, acquired; Z90.710 Acquired absence of both cervix and uterus; Z90.49 Acquired absence of other specified parts of digestive tract; Z87.891 Personal history of nicotine dependence; Z79.899 Other long term (current) drug therapy; Z79.82 Long term (current) use of aspirin; Z86.79 Personal history of other diseases of the circulatory system; Z86.718 Personal history of other venous thrombosis and embolism
CPT/HCPCS: 36415; 71045; 72132-TC; 80048; 80053; 81003; 82550-TC; 83036; 83735-TC; 85025; 85610-TC; 85730-TC; 87081; 93005; 96374; 96375; 96376; 97110-GP; 97116-GP; 97530-GP; 99285; J1644; J2270; J2405; J3010; Q9967